=== PATIENT | male | born 1965 | race African-American/Black ===

== ENCOUNTER 2017-09-04 15:12 | Emergency (ER) | payer SELFPAY ==
[~2017-09-04] VITALS: Ht 185.4 cm; Wt 109.1 kg
[2017-09-04] MEDS ORDERED: IBUPROFEN 800 MG TABLET PO ONE (16:30)
[2017-09-04] MEDS ORDERED: LIDOCAINE HCL/PF 1% 2 ML VIAL IM ONE (17:45)
[2017-09-04] MEDS ORDERED: CefTRIAXone SODIUM 1 GM/VIAL IM ONE (17:45)
[2017-09-04] MEDS ORDERED: PERTUSS(ACELL),DIPH,TET VAC/PF 0.5 ML VIAL IM ONE (17:45)
[2017-09-04] MEDS ORDERED: SULFAMETHOX/TRIMETH DS 800-160 MG/TABLET PO ONE (17:45)
[2017-09-04 18:08] VITALS: BP 143/78
== END 2017-09-04 19:14 | disposition home or self-care (01) ==
LOC: EMS 15:16
DX: S60.410A Abrasion of right index finger, initial encounter (principal); L03.113 Cellulitis of right upper limb; W22.8XXA Striking against or struck by other objects, initial encounter; Y93.89 Activity, other specified; Y92.89 Other specified places as the place of occurrence of the external cause; Y99.8 Other external cause status
CPT/HCPCS: 73130; 90471; 90715; 96372; 99284; J0696; J3490